=== PATIENT | male | born 1955 | race Caucasian/White ===

== ENCOUNTER 2019-03-22 08:59 | Day surgery (SDC) | payer MEDICARE, OTHER ==
--- NOTE | 2019-03-18 19:27 | HP ---
CC: Dr. Wendie Ball; Dr. Josh Walsh ADMITTING HISTORY AND PHYSICAL: DATE OF ADMISSION: 03/22/19 ADMITTING DIAGNOSIS: Phimosis. PLANNED PROCEDURE: Circumcision. SURGEON: Dr. Walsh. HISTORY OF PRESENT ILLNESS: Ace Guerrero is a 64-year-old diabetic, who has had problems related to foreskin over the last several months. He had initially developed problems when he was placed on a medication called Viktor and developed what appears to have been a fungal rash, which was treated wi th antifungal medications (oral as well as topical). That has since resolved, but he continues to co mplain of some residual discomfort related to the phimosis and would like to have a circumcision. PAST MEDICAL HISTORY: Significant for: 1. Type 2 diabetes mellitus. 2. History of C5 fracture with chronic neck pain. The fracture was in 1996. PAST SURGICAL HISTORY: Significant for right colon resection in 2001 for diverticulitis. MEDICATIONS: On admission: 1. Amaryl 4 mg daily. 2. Vasotec 2.5 mg daily. 3. Neurontin 400 mg daily. 4. Insulin 30 units daily. 5. Tramadol 50 mg daily p.r.n. 6. Glimepiride 1 tablet daily. ALLERGIES: No known drug allergies. FAMILY HISTORY: Negative for bladder or prostate cancer. SOCIAL HISTORY: Smoking history: He is a former smoker, who quit 15 years ago and has a 30-pack-yea r smoking history prior to that. REVIEW OF SYSTEMS: He is otherwise in fairly good health. He denies any chest pain or shortness of breath. PHYSICAL EXAMINATION GENERAL: Reveals a pleasant, elderly gentleman. VITAL SIGNS: Blood pressure is 122/78, pulse 64 per minute and regular, temperature 97.7, oxygen sat uration 98% on room air. LUNGS: Clear bilaterally. CARDIOVASCULAR: Regular rate and rhythm. S1, S2. ABDOMEN: Soft without masses. GENITOURINARY: Phallus is uncircumcised with phimosis noted. There is no evidence of balanitis. IMPRESSION: I had a detailed discussion with Mr. Guerrero regarding the procedure of circumcision. I explained to him that since he currently does not have any balanitis, it is okay to wait and hold off on the circumcision, but he feels bothered by the tightness of the foreskin and would like to have i t removed. I have discussed the procedure and possible risks including bleeding, infection, altered appearance and sensation, and he appears to understand and wishes to proceed as planned. PLAN: Circumcision. [id number]/[facility] #: [id number]
[~2019-03-22 08:59] MED LIST: Buffered Lidocaine 1% SYRIN* 1 ML/SYRINGE INTRADERM ONE; Lactated Ringers 1000 ML Bag* 1,000 ML IV SCH; cefTRIAXone(*) 2 GM ADDV.VIAL IVPB ONE
[2019-03-22] MEDS ORDERED: Midazolam* 1 MG/ML 2 ML VIAL (2 MG) ONE (09:31)
[2019-03-22] MEDS ORDERED: fentaNYL* 50 MCG/ML 2 ML VIAL (100 MCG VIAL) ONE ×2 (09:31→10:42)
[2019-03-22] MEDS ORDERED: Bacitracin OINTMENT* 0.5% 0.5 oz TUBE ONE (10:00)
[2019-03-22] MEDS ORDERED: Lidocaine 1% INJ* 10 MG/ML 30 ML SDV ONE (10:00)
[2019-03-22] MEDS ORDERED: Famotidine IV* 10 MG/ML 2 ML (20 mg) ONE (10:11)
[2019-03-22] MEDS ORDERED: Lidocaine 2% PF * 5 ML VIAL ONE (10:18)
[2019-03-22] MEDS ORDERED: Propofol* 10 MG/ML 20 ML BTL ONE (10:30)
[2019-03-22] MEDS ORDERED: Dexamethasone IV* 4 MG/ML 1 ML (4 MG) ONE (10:30)
[2019-03-22] MEDS ORDERED: Ketorolac INJ* 30 MG/ML 1 ML VIAL ONE (10:30)
[2019-03-22] MEDS ORDERED: HYDROcodone/ACETAMIN 5-325 MG* 1 TAB PO PRN ×2 (10:31)
[2019-03-22] MEDS ORDERED: Ondansetron INJ* 2 MG/ML VIAL IV PRN (10:31)
[2019-03-22] MEDS ORDERED: DiMENhydriNATE IV* 50 MG/ML VIAL IV PUSH PRN (10:31)
[2019-03-22] MEDS ORDERED: Levalbuterol 0.63MG/3ML NEB* UNIT OF USE INH PRN (10:31)
[2019-03-22] MEDS ORDERED: fentaNYL* 50 MCG/ML 2 ML VIAL (100 MCG VIAL) IV PRN (10:31)
[2019-03-22] MEDS ORDERED: Naloxone* 0.4 MG/ML 1 ML VIAL IV PRN (10:31)
[2019-03-22] MEDS ORDERED: diPHENhydraMINE IV* 50 MG/ML 1 ml VIAL (BENADRYL) IV PRN (10:31)
[2019-03-22] MEDS ORDERED: Acetaminophen TAB* 325 MG PO PRN (10:31)
[2019-03-22] MEDS ORDERED: PROCHLORPERAZINE INJ 5 MG/ML 2 ML VIAL IV PRN (10:31)
[2019-03-22 12:29] VITALS: BP 158/105
--- NOTE | 2019-03-22 12:50 | OP ---
CC: Dr. Wendie Ball * DATE OF OPERATION: 03/22/19 - SDS DATE OF : 53 SURGEON: Dr. Josh Walsh. ANESTHESIOLOGIST: Dr. Mackey. ANESTHESIA: General. PRE-OP DIAGNOSES: 1. Phimosis. 2. History of balanitis. POST-OP DIAGNOSES: 1. Phimosis. 2. History of balanitis. OPERATIVE PROCEDURE: Circumcision. COMPLICATIONS: None. BLOOD LOSS: Minimal. POSTOPERATIVE CONDITION: Stable. SPECIMEN: Foreskin. INDICATIONS: Ace Guerrero is a 64-year-old diabetic with a history of problems related to the foreskin, who desires circumcision. I have discussed the procedure and possible risks including bleeding, infection, altered appearance and sensation, and he understands and wishes to proceed as planned. DESCRIPTION OF PROCEDURE: After induction of general anesthesia, external genitalia were prepped and draped in the usual sterile fashion. A circumferential incision was made over the coronal prominence and after this was done, the foreskin was retracted and a second circumferential incision was made just proximal to the coronal edges. The foreskin between the 2 incisions was removed circumferentially. Hemostasis was secured using the coagulating pattern and the divided edges of the skin were approximated using interrupted sutures of 3-0 and 4-0 chromic alternating. All sponge and needle counts were correct. Bacitracin ointment was applied postoperatively and the patient was transferred back to the recovery area in stable condition. [id number]/[facility] #: [id number] MTDD
== END 2019-03-22 13:12 | disposition home or self-care (01) ==
LOC: OR 08:59
PROVIDERS: ATTEND Urology
DX: N47.1 Phimosis (principal); E11.9 Type 2 diabetes mellitus without complications; Z79.4 Long term (current) use of insulin; Z87.891 Personal history of nicotine dependence; I10 Essential (primary) hypertension
CPT/HCPCS: 88304; A9270-GY; J0696; J1100; J1885; J2250; J2704; J3010

== ENCOUNTER 2022-03-01 05:34 | Observation (INO) ==
[2022-03-01] MEDS ORDERED: Buffered Lidocaine 1% SYRIN 1 ml INTRADERM ONE (06:00)
[2022-03-01] MEDS ORDERED: Famotidine IV 10 MG/ML 2 ml VIAL (20 mg) IV ONE (06:00)
[2022-03-01] MEDS ORDERED: Lactated Ringers 1000 ml BAG 1,000 ML IV SCH (06:00)
[2022-03-01] MEDS ORDERED: ceFAZolin 2 GM in NS PREMIX 2 GM/100 ML BAG IVPB ONE (06:10)
[2022-03-01] MEDS ORDERED: Famotidine IV 10 MG/ML 2 ml VIAL (20 mg) ONE (06:10)
[2022-03-01] MEDS ORDERED: Midazolam 2 mg/2 ml VIAL 1 mg/ml 2 ml VIAL (2 mg) ONE ×2 (06:57→07:25)
[2022-03-01] MEDS ORDERED: Phenylephrine IV 10 MG/ML 1 ml VIAL ONE (07:46)
[2022-03-01] MEDS ORDERED: fentaNYL 100 mcg/2 ml 50 MCG/ML VIAL ONE ×2 (07:50→09:09)
[2022-03-01] MEDS ORDERED: Ondansetron 4 mg VIAL 2 MG/ML 2 ml VIAL IV PRN ×2 (08:10→10:20)
[2022-03-01] MEDS ORDERED: HYDROmorphone 1 MG/1 ML SYRINGE IV PRN (08:10)
[2022-03-01] MEDS ORDERED: Naloxone 0.4 mg VIAL 0.4 mg/ml 1 ml VIAL IV PRN (08:10)
[2022-03-01] MEDS ORDERED: Acetaminophen IV 1 GM/100ML 100 ML IV ONE (08:28)
[2022-03-01] MEDS ORDERED: Glycopyrrolate IV 0.2 MG/ML 1 ML VIAL ONE (08:51)
[2022-03-01] MEDS ORDERED: Propofol 10 MG/ML 20 ML BTL ONE (09:11)
[2022-03-01] MEDS ORDERED: Ondansetron 4 mg VIAL 2 MG/ML 2 ml VIAL ONE (09:26)
[2022-03-01] MEDS ORDERED: Magnesium Hydroxide LIQ 30 ML UDC PO PRN (10:20)
[2022-03-01] MEDS ORDERED: Morphine 2 MG/ML SYRINGE IV PRN (10:20)
[2022-03-01] MEDS ORDERED: Ondansetron ODT 4 mg TAB 4 MG TAB PO PRN (10:20)
[2022-03-01] MEDS ORDERED: Lactulose 30 ml UDC PO PRN (10:20)
[2022-03-01] MEDS ORDERED: HYDROmorphone 1 MG/1 ML SYRINGE ONE (10:39)
[2022-03-01] MEDS ORDERED: Dextrose 50% Syringe 50 ml 25 GM/50 ML SYRINGE IV PUSH PRN (11:11)
[2022-03-01] MEDS: Lactated Ringers 1000 ml BAG 1,000 ML IV SCH ×2 (12:21→22:02)
[2022-03-01 15:38] LABS: Calcium 8.7 mg/dL (8.6-10.3); Potassium 3.7 mmol/L (3.5-5.0)
[2022-03-01] MEDS: ceFAZolin 1 GM ADVAN 1 GM in NS 0.9% 50 ML 50 ML IVPB SCH (16:28)
[2022-03-01] MEDS ORDERED: Glimepiride 4 mg TAB (NF) PO SCH (21:00)
[2022-03-01] MEDS ORDERED: METFORMIN 500 MG PO SCH (21:00)
[2022-03-01] MEDS: Magnesium Hydroxide LIQ 30 ML UDC PO SCH (21:59)
[2022-03-02] MEDS: ceFAZolin 1 GM ADVAN 1 GM in NS 0.9% 50 ML 50 ML IVPB SCH ×2 (00:02→07:53)
[2022-03-02 04:46] LABS: Hematocrit 29 % (42-52); Hemoglobin 9.8 g/dL (14.0-18.0); Mean Platelet Volume 7.3 fL (7.4-10.4); Platelet Count 185 10^3/uL (150-450)
[2022-03-02 05:10] LABS: Calcium 8.4 mg/dL (8.6-10.3); Potassium 3.9 mmol/L (3.5-5.0); eGFR CKD-EPI 98.7 (>60)
[2022-03-02] MEDS: Magnesium Hydroxide LIQ 30 ML UDC PO SCH (07:56)
[2022-03-02] MEDS ORDERED: Vitamin THERAPEUTIC TAB PO SCH (09:00)
[2022-03-02] MEDS ORDERED: Insulin GLARGINE 100 un/ml 10 ml VIAL SUBCUT SCH (09:00)
[2022-03-02 11:16] VITALS: BP 104/72
== END 2022-03-02 12:48 | disposition home or self-care (01) ==
LOC: SSU → INTOOBSV 05:34 → AA 05:34 → EDSTATUS 12:30
PROVIDERS: ADMIT Orthopaedic Surgery Adult Reconstructive Orthopaedic Surgery; ATTEND Orthopaedic Surgery Adult Reconstructive Orthopaedic Surgery

== ENCOUNTER 2024-08-28 09:56 | Inpatient (IN) ==
[2024-08-28 10:21] LABS: ABS Lymphocytes 0.6 10^3/uL (1.0-4.8); ABS Monocytes 0.7 10^3/uL (0.0-1.1); Hematocrit 47.5 % (38-53); Hemoglobin 15.2 g/dL (13.2-16.3); Lymphocyte % 3.5 %; Mean Corpuscular Hgb Conc 32.1 g/dL (31-36); Mean Corpuscular Volume 93.7 fL (80-97); Mean Platelet Volume 8.1 fL (7.5-11.2); Platelet Count 303 10^3/uL (150-450); Red Blood Count 5.07 10^6/uL (4.06-5.63); Red Cell Distribution Width 13.3 % (12-17); White Blood Count 17.3 10^3/uL (3.6-10.2)
[2024-08-28 10:30] LABS: INR 1.22 (0.85-1.14)
[2024-08-28 11:02] LABS: Albumin 4.6 g/dL (3.2-5.2); Albumin/Globulin Ratio 1.5 (1-3); Calcium 10.1 mg/dL (8.6-10.3); Creatinine, Serum 1.21 mg/dL (0.67-1.17); Potassium 4.4 mmol/L (3.5-5.0); Total Bilirubin 2.1 mg/dL (0.2-1.0); Total Protein 7.6 g/dL (6.4-8.9); eGFR CKD-EPI 64.4 (>60)
[2024-08-28 12:01] LABS: High Sensitivity Troponin 1 Hr 4222 pg/mL (<20)
[2024-08-28] MEDS: Iodixanol 320 (CONTRAST) 100 ML SDV IV ONE (12:01)
[2024-08-28] MEDS ORDERED: Heparin 5000 UNITS/ML 1 mL VIAL IV SCH (13:00)
[2024-08-28] MEDS: Furosemide 40 mg/4 ml IV VIAL IV SLOW PU ONE (13:45)
[2024-08-28] MEDS: Heparin DRIP 25,000 UNITS BAG 25,000 UNITS/250 ML BAG IV SCH ×2 (13:48→14:51)
[2024-08-28 13:53] LABS: HDL Cholesterol 45.9 mg/dL
[2024-08-28] MEDS: Azithromycin 500 mg/250 ml NS 500 MG/250 ML BAG IVPB SCH (13:58)
[2024-08-28] MEDS: cefTRIAXone 1 gm/50 mL D5W 1 GM/50 ML BAG IV ONE (13:58)
[2024-08-28 16:12] LABS: High Sensitivity Troponin 1 Hr 4383 pg/mL (<20)
[2024-08-28] MEDS: Pantoprazole VIAL 40 MG VIAL IV SCH (16:45)
[2024-08-28 18:05] LABS: Calcium 9.5 mg/dL (8.6-10.3); Creatinine, Serum 1.18 mg/dL (0.67-1.17); Potassium 3.6 mmol/L (3.5-5.0); eGFR CKD-EPI 66.4 (>60)
[2024-08-28 18:18] LABS: High Sensitivity Troponin 3 Hr 4293 pg/mL (<20)
[2024-08-28 19:24] LABS: Urine Appearance Clear; Urine Bilirubin Negative (Negative); Urine Blood Negative (Negative); Urine Color Colorless; Urine Glucose 2+ (>=150 mg/dL) (Negative); Urine Ketones Trace (Negative); Urine Nitrite Negative (Negative); Urine Protein Negative (Negative); Urine Specific Gravity 1.012 (1.002-1.030); Urine Urobilinogen Negative (Negative)
[2024-08-28] MEDS: Heparin 5000 UNITS/ML 1 mL VIAL IV SCH (22:29)
[2024-08-29 05:29] LABS: ABS Basophils 0.1 10^3/uL (0.0-0.1); ABS Eosinophils 0.1 10^3/uL (0.0-0.5); ABS Lymphocytes 1.1 10^3/uL (1.0-4.8); ABS Monocytes 0.9 10^3/uL (0.0-1.1); ABS Neutrophils 14.8 10^3/uL (1.5-7.6); ABS Nucleated RBC 0.01 10^3/ul; Eosinophil % 0.3 %; Hematocrit 42.8 % (38-53); Hemoglobin 14.6 g/dL (13.2-16.3); Lymphocyte % 6.2 %; Mean Corpuscular Hemoglobin 31.5 pg (27-33); Mean Corpuscular Hgb Conc 34.1 g/dL (31-36); Mean Corpuscular Volume 92.3 fL (80-97); Nucleated Red Blood Cells % 0.1 %/100WBC (0.0-0.8); Platelet Count 245 10^3/uL (150-450); Red Blood Count 4.64 10^6/uL (4.06-5.63); Red Cell Distribution Width 13.2 % (12-17); White Blood Count 16.9 10^3/uL (3.6-10.2)
[2024-08-29 06:01] LABS: Albumin 4.1 g/dL (3.2-5.2); Albumin/Globulin Ratio 1.5 (1-3); Calcium 9.2 mg/dL (8.6-10.3); Creatinine, Serum 1.04 mg/dL (0.67-1.17); Globulin 2.7 g/dL (2-4); Magnesium 1.8 mg/dL (1.9-2.7); Potassium 3.8 mmol/L (3.5-5.0); Total Bilirubin 2.4 mg/dL (0.2-1.0); Total Protein 6.8 g/dL (6.4-8.9); eGFR CKD-EPI 77.2 (>60)
[2024-08-29] MEDS: Magnesium Sulfate 2 gm BAG 2 GM/50 ML BAG IVPB ONE (08:01)
[2024-08-29] MEDS: Aspirin EC 81 mg TAB.EC (enteric coated) PO SCH (08:07)
[2024-08-29] MEDS ORDERED: Sulfur Hexaflouride MICROSPHR 25 MG VIAL ONE (08:58)
[2024-08-29] MEDS: Sulfur Hexaflouride MICROSPHR 25 MG VIAL IV PRN (09:04)
[2024-08-29] MEDS: Azithromycin 500 mg/250 ml NS 500 MG/250 ML BAG IVPB SCH (12:53)
[2024-08-29] MEDS: cefTRIAXone 1 gm/50 mL D5W 1 GM/50 ML BAG IV SCH (14:27)
[2024-08-30 05:22] LABS: ABS Basophils 0.1 10^3/uL (0.0-0.1); ABS Eosinophils 0.2 10^3/uL (0.0-0.5); ABS Lymphocytes 1.9 10^3/uL (1.0-4.8); ABS Monocytes 0.8 10^3/uL (0.0-1.1); ABS Neutrophils 7.6 10^3/uL (1.5-7.6); ABS Nucleated RBC 0.01 10^3/ul; Eosinophil % 1.5 %; Hematocrit 39.3 % (38-53); Hemoglobin 13.4 g/dL (13.2-16.3); Lymphocyte % 17.8 %; Mean Corpuscular Hemoglobin 31.7 pg (27-33); Mean Corpuscular Hgb Conc 34.1 g/dL (31-36); Mean Corpuscular Volume 92.9 fL (80-97); Mean Platelet Volume 8.4 fL (7.5-11.2); Nucleated Red Blood Cells % 0.1 %/100WBC (0.0-0.8); Platelet Count 179 10^3/uL (150-450); Red Blood Count 4.23 10^6/uL (4.06-5.63); Red Cell Distribution Width 13.4 % (12-17); White Blood Count 10.6 10^3/uL (3.6-10.2)
[2024-08-30 06:01] LABS: Albumin 3.7 g/dL (3.2-5.2); Albumin/Globulin Ratio 1.5 (1-3); Calcium 8.5 mg/dL (8.6-10.3); Creatinine, Serum 0.97 mg/dL (0.67-1.17); Globulin 2.5 g/dL (2-4); Phosphorus 2.3 mg/dL (2.5-5.0); Potassium 3.7 mmol/L (3.5-5.0); Total Bilirubin 2.1 mg/dL (0.2-1.0); Total Protein 6.2 g/dL (6.4-8.9)
[2024-08-30 08:38] LABS: Magnesium 1.9 mg/dL (1.9-2.7)
[2024-08-30] MEDS: Magnesium Sulfate 2 gm BAG 2 GM/50 ML BAG IVPB ONE (09:29)
[2024-08-30] MEDS: NS 0.9% 1000 ml BAG 1,000 ML IV SCH (09:29)
[2024-08-30] MEDS: Potassium Chlor 20 meq TAB.ER PO ONE (09:46)
[2024-08-30] MEDS: Furosemide 20 mg/2 ml IV VIAL IV ONE (09:46)
[2024-08-30 10:13] LABS: TSH Ultra Thyroid Stim Horm 0.54 mcIU/mL (0.34-5.60)
[2024-08-30 10:14] LABS: Free T3 2.86 pg/mL (2.5-3.9)
[2024-08-30 10:15] LABS: Free T4 1.07 ng/dL (0.61-1.12)
[2024-08-30] MEDS ORDERED: fentaNYL 100 mcg/2 ml 50 MCG/ML VIAL ONE (11:36)
[2024-08-30] MEDS ORDERED: Midazolam 5 mg/5 ml VIAL 1 mg/ml 5 ml VIAL (5 mg) ONE (11:36)
[2024-08-30] MEDS ORDERED: Heparin 1,000 UNIT/ML 10 ml (10,000 UNITS) CATHLAB/DIALYSIS ONE (11:36)
[2024-08-30] MEDS ORDERED: nitroGLYCERIN DRIP 25,000 MCG/250 ML BTL ONE (11:37)
[2024-08-30] MEDS ORDERED: Heparin 2 UNITS/ML 1000 mls 2,000 ML IV ONE (11:37)
[2024-08-30] MEDS ORDERED: Lidocaine 1% MPF 5 ML VIAL ONE (11:37)
[2024-08-30] MEDS ORDERED: Iohexol 350 (CONTRAST) 100 ML PAK IV ONE ×2 (12:02→12:24)
[2024-08-30] MEDS ORDERED: niCARdipine 0.1MG/ML 200 ML IVPREMIX IV ONE (12:36)
[2024-08-30] MEDS: Dextrose 50% Syringe 50 ml 25 GM/50 ML SYRINGE IV PUSH PRN (23:57)
[2024-08-31 04:04] LABS: ABS Basophils 0.1 10^3/uL (0.0-0.1); ABS Eosinophils 0.2 10^3/uL (0.0-0.5); ABS Lymphocytes 2.5 10^3/uL (1.0-4.8); ABS Monocytes 0.7 10^3/uL (0.0-1.1); ABS Neutrophils 5.2 10^3/uL (1.5-7.6); ABS Nucleated RBC 0.01 10^3/ul; Eosinophil % 2.1 %; Hematocrit 38.2 % (38-53); Hemoglobin 12.9 g/dL (13.2-16.3); Lymphocyte % 28.9 %; Mean Corpuscular Hemoglobin 31.4 pg (27-33); Mean Corpuscular Hgb Conc 33.8 g/dL (31-36); Mean Corpuscular Volume 92.7 fL (80-97); Mean Platelet Volume 8.2 fL (7.5-11.2); Nucleated Red Blood Cells % 0.1 %/100WBC (0.0-0.8); Platelet Count 195 10^3/uL (150-450); Red Blood Count 4.12 10^6/uL (4.06-5.63); Red Cell Distribution Width 13.1 % (12-17); White Blood Count 8.6 10^3/uL (3.6-10.2)
[2024-08-31 04:48] LABS: Albumin 3.6 g/dL (3.2-5.2); Albumin/Globulin Ratio 1.4 (1-3); Calcium 8.6 mg/dL (8.6-10.3); Creatinine, Serum 0.96 mg/dL (0.67-1.17); Globulin 2.5 g/dL (2-4); Potassium 3.9 mmol/L (3.5-5.0); Total Bilirubin 1.9 mg/dL (0.2-1.0); Total Protein 6.1 g/dL (6.4-8.9)
[2024-08-31] MEDS: Furosemide 20 mg/2 ml IV VIAL IV ONE (10:23)
[2024-08-31] MEDS: Empagliflozin 25 MG TAB PO SCH (10:23)
[2024-09-01 07:05] LABS: ABS Eosinophils 0.2 10^3/uL (0.0-0.5); ABS Lymphocytes 1.5 10^3/uL (1.0-4.8); ABS Monocytes 0.6 10^3/uL (0.0-1.1); ABS Neutrophils 5.1 10^3/uL (1.5-7.6); Eosinophil % 2.7 %; Hematocrit 42.5 % (38-53); Hemoglobin 14.6 g/dL (13.2-16.3); Lymphocyte % 20.5 %; Mean Corpuscular Hemoglobin 31.7 pg (27-33); Mean Corpuscular Hgb Conc 34.2 g/dL (31-36); Mean Corpuscular Volume 92.7 fL (80-97); Mean Platelet Volume 8.4 fL (7.5-11.2); Nucleated Red Blood Cells % 0.1 %/100WBC (0.0-0.8); Platelet Count 233 10^3/uL (150-450); Red Blood Count 4.59 10^6/uL (4.06-5.63); Red Cell Distribution Width 13.4 % (12-17); White Blood Count 7.4 10^3/uL (3.6-10.2)
[2024-09-01 07:29] LABS: Albumin 4.3 g/dL (3.2-5.2); Albumin/Globulin Ratio 1.5 (1-3); Calcium 9.5 mg/dL (8.6-10.3); Creatinine, Serum 0.92 mg/dL (0.67-1.17); Globulin 2.8 g/dL (2-4); Potassium 4.4 mmol/L (3.5-5.0); Total Bilirubin 2.4 mg/dL (0.2-1.0); Total Protein 7.1 g/dL (6.4-8.9); eGFR CKD-EPI 89.5 (>60)
[2024-09-01] MEDS: Sulfur Hexaflouride MICROSPHR 25 MG VIAL IV PRN (15:20)
[2024-09-02 07:00] LABS: ABS Basophils 0.1 10^3/uL (0.0-0.1); ABS Eosinophils 0.3 10^3/uL (0.0-0.5); ABS Lymphocytes 1.6 10^3/uL (1.0-4.8); ABS Monocytes 0.6 10^3/uL (0.0-1.1); ABS Neutrophils 5.5 10^3/uL (1.5-7.6); Eosinophil % 3.2 %; Hemoglobin 15.1 g/dL (13.2-16.3); Lymphocyte % 19.8 %; Mean Corpuscular Hemoglobin 31.8 pg (27-33); Mean Corpuscular Hgb Conc 34.4 g/dL (31-36); Mean Corpuscular Volume 92.3 fL (80-97); Mean Platelet Volume 8.1 fL (7.5-11.2); Platelet Count 243 10^3/uL (150-450); Red Blood Count 4.76 10^6/uL (4.06-5.63); Red Cell Distribution Width 13.5 % (12-17); White Blood Count 8.1 10^3/uL (3.6-10.2)
[2024-09-02 14:19] VITALS: BP 114/84
== END 2024-09-02 16:52 | disposition home or self-care (01) | DRG 280 ==
LOC: ED 09:56 → EDHOLD 13:20 → MEDTELE 13:20 → ICU 16:04 → MEDTELE 08-31 15:50
PROVIDERS: ADMIT Student in an Organized Health Care Education/Training Program; ATTEND Hospitalist